=== PATIENT | male | born 1985 | race African-American/Black ===

== ENCOUNTER 2023-07-25 18:11 | Inpatient (IN) | payer OTHER, SELFPAY ==
[~2023-07-25 18:11] MED LIST: Iopamidol-370 76% 500 ML MDV (1 ML CHARGE) ONE
[2023-07-25] MEDS ORDERED: Boostrix 0.5 ML (Tdap) VIAL (>/=7 yrs of age) ONE (18:14)
[2023-07-25] MEDS ORDERED: CEFAZOLIN 2 GM VIAL ONE (18:14)
[2023-07-25] MEDS ORDERED: fentaNYL 50 mcg/mL 1 mL Vial ONE (18:23)
[2023-07-25 18:29] LABS: #Monocytes 0.7 thou/uL (0.11-0.59); #Neutrophils 6.4 thou/uL (1.40-6.50); %Basophils 0.2 % (0.0-1.0); %Eosinophils 0.3 % (0.0-10.0); %Lymphocytes 24.5 % (21.0-51.0); %Monocytes 7.1 % (0.0-10.0); %Neutrophils 66.5 % (42.0-75.0); Hematocrit 46.2 % (42.0-52.0); Hemoglobin 14.6 g/dL (14.0-18.0); Mean Corpuscular HGB CONC 31.6 g/dL (32.0-36.0); Mean Corpuscular Hemoglobin 26.4 pg (27.0-31.0); Mean Corpuscular Volume 83.4 fl (78.0-98.0); Platelet Count 239 10x3/uL (130-400); Red Blood Cell (RBC) Count 5.54 mill/uL (4.70-6.10); White Blood Cell (WBC) Count 9.7 10x3/uL (4.8-10.8)
[2023-07-25 18:49] LABS: Bilirubin Negative (Negative); Blood, Urine Trace (Negative); CAUTI Indications for Culture Urological Procedure; Clarity Turbid (Clear); Glucose, Urine (Dipstick) 50 mg/dL (Negative); Ketone, Urine Negative (Negative); Leukocyte 25 Leu/uL (Negative); Nitrite Negative (Negative); Protein, Urine (Dipstick) 200 mg/dL (Neg-Trace); RBC/HPF 0-3 HPF (0-3); Specific Gravity, Urine 1.025 (1.002-1.036); Urobilinogen Normal mg/dL (Less than 2); WBC/HPF 0-3 HPF (0-3)
[2023-07-25 18:49] LABS: INR-International Normal Ratio 1.1; PTT 23.9 sec (22.9-36.1)
[2023-07-25 18:53] LABS: Bacteria/HPF 1+ HPF (None Seen)
[2023-07-25 18:54] LABS: Urine Culture Reflex Yes Yes
[2023-07-25 18:55] LABS: Amphetamine Not Detected (NotDetected); Barbiturates Screen Not Detected (NotDetected); Benzodiazepine Screen Not Detected (NotDetected); Cocaine Metabolite Screen Not Detected (NotDetected); Methadone Not Detected (NotDetected); Methamphetamine Not Detected (NotDetected); Opiate Screen Not Detected (NotDetected); Oxycodone Screen Not Detected (NotDetected); Phencyclidine (PCP) Not Detected (NotDetected); THC/Cannabinoid Screen Not Detected (NotDetected); Tricyclic Screen Not Detected (NotDetected)
[2023-07-25] MEDS ORDERED: Dextrose 50% Abboject 50 ML SYRINGE SLOW IVP PRN (19:06)
[2023-07-25] MEDS ORDERED: Dextrose 5% in Water 1,000 ML IV PRN (19:06)
[2023-07-25] MEDS ORDERED: Ipratropium/Albuterol 3 ML NEB NEB PRN (19:06)
[2023-07-25] MEDS ORDERED: Ondansetron ODT 4 MG TAB PO PRN (19:06)
[2023-07-25] MEDS ORDERED: Morphine 2 MG/ML VIAL SLOW IVP PRN (19:06)
[2023-07-25] MEDS ORDERED: TETANUS, DIPHTHERIA TOX,ADULT (TDVAX) 0.5 ML VIAL IM ONE (19:06)
[2023-07-25] MEDS ORDERED: Glucagon 1 MG/ML KIT IM PRN (19:06)
[2023-07-25] MEDS ORDERED: hydrALAZINE 20 MG/ML VIAL SLOW IVP PRN (19:06)
[2023-07-25 19:10] LABS: ALT (SGPT) 38 U/L (8-55); AST (SGOT) 21 U/L (5-34); Albumin 3.5 g/dL (3.5-5.0); Alkaline Phosphatase 73 U/L (40-110); Anion Gap 16 mmol/L (10-20); BUN (Urea Nitrogen) 24 mg/dL (8.9-20.6); Bilirubin, Total 0.4 mg/dL (0.2-1.2); Calc. Creatinine Clearance 0 mL/min (70-130); Calcium 8.5 mg/dL (7.8-10.44); Carbon Dioxide 15 mmol/L (22-29); Chloride 111 mmol/L (98-107); Estimated GFR 61; Globulin 3.3 g/dL (2.4-3.5); Glucose 252 mg/dL (70-105); Potassium 4.2 mmol/L (3.5-5.1); Protein, Total 6.8 g/dL (6.0-8.3); Sodium 138 mmol/L (136-145)
[2023-07-25] MEDS ORDERED: Sodium Chloride 0.9% 1,000 ML IV SCH (19:15)
[2023-07-25 19:25] LABS: Acetaminophen Less than 10 mcg/mL (10.0-30.0); Alcohol Less than 10.0 mg/dL (Less than 10); Salicylate Less than 8.0 mg/dL (15.0-30.0)
[2023-07-25] MEDS ORDERED: Cyclobenzaprine 10 MG TAB PO PRN (19:34)
[2023-07-25] MEDS ORDERED: Lidocaine 1% w/Epinephrine 1:100K 20 ML VIAL ONE (19:42)
[2023-07-25] MEDS ORDERED: Acetaminophen 325 MG TAB PO SCH (19:45)
[2023-07-25] MEDS ORDERED: Bacitracin 1 PK ONE ×2 (20:09→20:11)
[2023-07-25] MEDS: Sodium Chloride 0.9% 1,000 ML IV SCH (21:41)
[2023-07-25] MEDS: Acetaminophen 500 MG TAB PO SCH (21:46)
[2023-07-25] MEDS: traMADol HCl 50 MG TAB PO PRN (21:48)
[2023-07-25] MEDS: Famotidine 20 MG TAB PO SCH (21:48)
[2023-07-25 22:00] LABS: Lactic Acid 3.8 mmol/L (0.5-2.2)
[2023-07-26] MEDS: traMADol HCl 50 MG TAB PO SCH ×5 (01:18→23:41)
[2023-07-26] MEDS: CEFAZOLIN 2 GM in Sodium Chloride 0.9% 100 ML IVPB SCH ×3 (01:20→17:53)
[2023-07-26] MEDS: Acetaminophen 500 MG TAB PO SCH ×4 (03:01→20:26)
[2023-07-26 03:43] VITALS: BMI 39.1
[2023-07-26] MEDS: Sodium Chloride 0.9% 1,000 ML IV SCH (04:53)
[2023-07-26 06:46] LABS: #Monocytes 1.1 thou/uL (0.11-0.59); %Basophils 0.2 % (0.0-1.0); %Lymphocytes 18.2 % (21.0-51.0); %Monocytes 6.5 % (0.0-10.0); Mean Corpuscular HGB CONC 32.5 g/dL (32.0-36.0); Mean Corpuscular Hemoglobin 26.6 pg (27.0-31.0); Mean Corpuscular Volume 81.8 fl (78.0-98.0); Mean Platelet Volume 10.5 fL (7.4-10.4); Platelet Count 201 10x3/uL (130-400); RBC Distribution Width 16.3 % (11.5-14.5); Red Blood Cell (RBC) Count 4.89 mill/uL (4.70-6.10); White Blood Cell (WBC) Count 17.6 10x3/uL (4.8-10.8)
[2023-07-26 07:08] LABS: Anion Gap 8 mmol/L (10-20); BUN (Urea Nitrogen) 20 mg/dL (8.9-20.6); Calc. Creatinine Clearance 140 mL/min (70-130); Calcium 8.5 mg/dL (7.8-10.44); Carbon Dioxide 22 mmol/L (22-29); Chloride 109 mmol/L (98-107); Estimated GFR 88; Glucose 137 mg/dL (70-105); Potassium 4.3 mmol/L (3.5-5.1); Sodium 135 mmol/L (136-145)
[2023-07-26] MEDS: Famotidine 20 MG TAB PO SCH ×2 (09:34→20:26)
[2023-07-27] MEDS: CEFAZOLIN 2 GM in Sodium Chloride 0.9% 100 ML IVPB SCH (02:35)
[2023-07-27] MEDS: traMADol HCl 50 MG TAB PO PRN ×2 (02:40→10:41)
[2023-07-27] MEDS: Acetaminophen 500 MG TAB PO SCH ×3 (02:40→15:00)
[2023-07-27] MEDS: traMADol HCl 50 MG TAB PO SCH ×2 (05:57→13:16)
[2023-07-27 08:45] VITALS: BP 159/92; TEMP 97.8
[2023-07-27] MEDS: Famotidine 20 MG TAB PO SCH (10:37)
== END 2023-07-27 16:40 | disposition home or self-care (01) | DRG 908 ==
LOC: ERS 18:11 → EDBD 19:06 → SJJU 19:06
PROVIDERS: ADMIT Surgery; ATTEND Surgery
PROC: 0LQS0ZZ Repair Right Ankle Tendon, Open Approach (ICD-10-PCS; principal; 2023-07-25)
PROC: 30233N1 Transfusion of Nonautologous Red Blood Cells into Peripheral Vein, Percutaneous Approach (ICD-10-PCS; 2023-07-25)
PROC: 06LM0ZZ Occlusion of Right Femoral Vein, Open Approach (ICD-10-PCS; 2023-07-25)
PROC: 04L Lower Arteries, Occlusion (ICD-10-PCS; 2023-07-25)
PROC: 04L Lower Arteries, Occlusion (ICD-10-PCS; 2023-07-25)
DX: S95 Injury of blood vessels at ankle and foot level (principal); S96.921A Laceration of unspecified muscle and tendon at ankle and foot level, right foot, initial encounter; S94.21XA Injury of deep peroneal nerve at ankle and foot level, right leg, initial encounter; I10 Essential (primary) hypertension; F17.210 Nicotine dependence, cigarettes, uncomplicated; W26.0XXA Contact with knife, initial encounter; Y92.89 Other specified places as the place of occurrence of the external cause
CPT/HCPCS: 36415; 36430; 80048; 80053; 80306; 80307; 81001; 83605; 85025; 85610; 85730; 86850; 86900; 86901; 87086; 90715; G0390; J3010; J3490; J7050; P9016; Q9967